=== PATIENT | female | born 1970 | race Caucasian/White ===

== ENCOUNTER 2020-12-29 12:06 | Emergency (ER) | payer SELFPAY ==
[2020-12-29 12:20] VITALS: BP 134/98; PULSE 81; RESP 14; TEMP 36.7; O2SAT 98; BMI 33.0
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
[2020-12-29 12:33] VITALS: BP 134/98; PULSE 81; RESP 16; O2SAT 98
[2020-12-29] MEDS: ketorolac 10 mg Tablet PO (12:37)
--- NOTE | 2020-12-29 12:37 | PC.NURSE ---
Read and agree with assessment
--- NOTE | 2020-12-30 09:42 | DCPLANNER ---
log manager had message to schedule a follow up appointment for patient with ortho. log manager called the ortho clinic, spoke with Miriam, gave clinic patients information. log manager was told that patients information would be printed and reviewed. Clinic will call patient with appointment information.
--- NOTE | 2021-01-01 11:10 | DCPLANNER ---
Patient has a follow up appointment for patient with ortho scheduled for Thursday, January 07, 2021 at 10:[address] Shine. Clinic will call patient with appointment information.
--- NOTE | 2021-01-27 08:04 | DCPLANNER ---
Patient had a follow up appointment scheduled with ortho - patient did attend appointment.
== END 2020-12-29 14:31 | disposition home or self-care (01) ==
PROVIDERS: Emergency Provider Nurse Practitioner Family
DX: M48.02 Spinal stenosis, cervical region (principal)
CPT/HCPCS: 12345; 70450; 72125; 99282; 99283

== ENCOUNTER → 2021-01-09 10:15 | Outpatient (BNVA) | payer SELFPAY | PROVIDERS: PCP Nurse Practitioner Family; Referring Provider Nurse Practitioner Family; Visit Provider Orthopaedic Surgery | DX: M54.2 Cervicalgia (principal); M85.88 Other specified disorders of bone density and structure, other site; M47.892 Other spondylosis, cervical region | CPT/HCPCS: 72050 ==

== ENCOUNTER 2021-01-21 12:17 | Outpatient (CLI) | payer SELFPAY ==
--- NOTE | 2021-01-21 12:30 | MR_ITS ---
WS: [id number] MRI BRAIN WITHOUT CONTRAST HISTORY: M54.2 - Cervicalgia COMPARISON: CT head 12/29/2020 TECHNIQUE: Diffusion imaging, multiplanar T1, T2 and FLAIR imaging obtained. No evidence for acute infarct or hemorrhage. Sigala-white matter differentiation is normal. There are a few tiny very nonspecific subcortical white matter lesions which are not unexpected for t he patient's age. No prior hemorrhage. No significant volume loss or atrophy. Ventricles and extra-axial spaces are normal. No inferior displacement of cerebellar tonsils. The sella turcica and pituitary gland are unremarkabl e. Posterior fossa is also unremarkable. Dural venous sinuses and [place] demonstrate no abnormality on this unenhanced studies. Paranasal sinuses: Clear. Mastoid air cells: Normal. Calvarium and scalp: Intact. MR/MR head wo con* [id number] IMPRESSION: 1. No acute infarcts or hemorrhage. 2. Normal, age-appropriate MRI brain.
== END 2021-01-21 12:18 | disposition home or self-care (01) ==
LOC: RADSHAW 12:19
PROVIDERS: PCP Nurse Practitioner Family; Visit Provider Orthopaedic Surgery
DX: M54.2 Cervicalgia (principal)
CPT/HCPCS: 70551

== ENCOUNTER 2021-01-24 13:03 | Outpatient (CLI) | payer SELFPAY ==
--- NOTE | 2021-01-24 13:07 | MR_ITS ---
WS: [id number] MRI CERVICAL SPINE NONCONTRAST TECHNIQUE: Sagittal T1, T2 and STIR imaging. Axial T2, gradient, and fiesta imaging. CLINICAL INFORMATION: CERVICALGIA COMPARISON: CT cervical December 2020 FINDINGS: Straightening of the normal cervical lordosis. Disc osteophyte complexes worse at C5-C6 and C6-C7. No rmal cord signal. C2-C3: Normal. C3-C4: Normal. C4-C5: Mild osteophytic ridging. Mild left greater than right bony foraminal narrowing. Mild facet ar thropathy. Spinal canal is patent. C5-C6: Disc osteophyte complex eccentric to the left with slight contact of the cervical cord. Mild c entral canal stenosis. Severe left bony foraminal narrowing. Right foramen is patent. Moderate facet arthropathy. C6-C7: Disc osteophyte complex with endplate ridging eccentric to the right. Moderate central canal s tenosis with slight contact and slight flattening of the cervical cord. Moderate to severe bilateral bony foraminal narrowing right greater than left. Mild facet arthropathy. C7-T1: Disc osteophytic ridging. Mild bilateral left greater than right bony foraminal narrowing. Spi nal canal is patent. Visualized brain stem structures: Normal. Prevertebral soft tissues: Normal. MR/MR cervical spin wo con* [id number] IMPRESSION: 1. Straightening of the normal cervical lordosis. Cord signal is normal. 2. Disc osteophyte complexes at C5-C6 and C6-C7 with mild central canal stenos is at C5-C6 and moderate central canal stenosis at C6-7. 3. Severe left C5-6 and moderate to severe bilateral C6-7 bony foraminal narro wing right greater than left. 4. Mild left C7-T1 bony foraminal narrowing.
== END 2021-01-24 13:04 | disposition home or self-care (01) ==
LOC: RADWPI 13:06
PROVIDERS: PCP Nurse Practitioner Family; Visit Provider Orthopaedic Surgery
DX: M25.78 Osteophyte, vertebrae (principal); M48.02 Spinal stenosis, cervical region
CPT/HCPCS: 72141

== ENCOUNTER → 2021-02-25 09:21 | Outpatient (BNVA) | payer BC, SELFPAY | PROVIDERS: PCP Nurse Practitioner Family; Referring Provider Orthopaedic Surgery; Visit Provider Anesthesiology Pain Medicine | DX: M54.12 Radiculopathy, cervical region (principal); M47.812 Spondylosis without myelopathy or radiculopathy, cervical region; M50.90 Cervical disc disorder, unspecified, unspecified cervical region; F17.210 Nicotine dependence, cigarettes, uncomplicated | CPT/HCPCS: 99205 ==

== ENCOUNTER → 2021-03-05 13:33 | Outpatient (BNVA) | payer BC, SELFPAY | PROVIDERS: PCP Nurse Practitioner Family; Visit Provider Anesthesiology Pain Medicine | DX: G89.29 Other chronic pain (principal); M50.90 Cervical disc disorder, unspecified, unspecified cervical region; M54.12 Radiculopathy, cervical region | CPT/HCPCS: 62321 ==

== ENCOUNTER → 2021-03-19 08:37 | Outpatient (BNVA) | payer BC, SELFPAY | PROVIDERS: PCP Nurse Practitioner Family; Visit Provider Anesthesiology Pain Medicine | DX: M54.12 Radiculopathy, cervical region (principal) | CPT/HCPCS: 62321; J1100 ==

== ENCOUNTER → 2021-04-04 10:44 | Outpatient (BNVA) | payer BC, SELFPAY | PROVIDERS: PCP Nurse Practitioner Family; Visit Provider Anesthesiology Pain Medicine | DX: M47.812 Spondylosis without myelopathy or radiculopathy, cervical region (principal); M54.12 Radiculopathy, cervical region; M50.90 Cervical disc disorder, unspecified, unspecified cervical region; R20.2 Paresthesia of skin; F17.210 Nicotine dependence, cigarettes, uncomplicated | CPT/HCPCS: 99214; J1100 ==

== ENCOUNTER → 2021-04-07 13:56 | Outpatient (BNVA) | payer BC, SELFPAY | PROVIDERS: PCP Nurse Practitioner Family; Visit Provider Anesthesiology Pain Medicine | DX: M47.812 Spondylosis without myelopathy or radiculopathy, cervical region (principal); F17.210 Nicotine dependence, cigarettes, uncomplicated | CPT/HCPCS: 64490; 64491; 64492; J3490 ==

== ENCOUNTER → 2021-04-22 09:02 | Outpatient (BNVA) | payer BC, SELFPAY | PROVIDERS: PCP Nurse Practitioner Family; Visit Provider Anesthesiology Pain Medicine | DX: M54.12 Radiculopathy, cervical region (principal); M47.812 Spondylosis without myelopathy or radiculopathy, cervical region; M50.90 Cervical disc disorder, unspecified, unspecified cervical region; F17.210 Nicotine dependence, cigarettes, uncomplicated | CPT/HCPCS: 99214 ==

== ENCOUNTER → 2021-05-05 12:51 | Outpatient (BNVA) | payer BC, SELFPAY | PROVIDERS: PCP Nurse Practitioner Family; Visit Provider Anesthesiology Pain Medicine | DX: M47.812 Spondylosis without myelopathy or radiculopathy, cervical region (principal); F17.210 Nicotine dependence, cigarettes, uncomplicated | CPT/HCPCS: 64633; 64634; J1030 ==

== ENCOUNTER → 2021-05-22 10:37 | Outpatient (BNVA) | payer BC, SELFPAY | PROVIDERS: PCP Nurse Practitioner Family; Visit Provider Anesthesiology Pain Medicine | DX: M54.9 Dorsalgia, unspecified (principal); M54.12 Radiculopathy, cervical region; M47.812 Spondylosis without myelopathy or radiculopathy, cervical region; M50.90 Cervical disc disorder, unspecified, unspecified cervical region; M54.81 Occipital neuralgia; F17.210 Nicotine dependence, cigarettes, uncomplicated | CPT/HCPCS: 99214 ==

== ENCOUNTER → 2021-06-19 10:49 | Outpatient (BNVA) | payer BC, SELFPAY | PROVIDERS: PCP Nurse Practitioner Family; Visit Provider Anesthesiology Pain Medicine | DX: M51.17 Intervertebral disc disorders with radiculopathy, lumbosacral region (principal); M47.812 Spondylosis without myelopathy or radiculopathy, cervical region; M50.90 Cervical disc disorder, unspecified, unspecified cervical region; M54.81 Occipital neuralgia | CPT/HCPCS: 99214 ==

== ENCOUNTER → 2021-08-11 10:44 | Outpatient (BNVA) | payer BC, SELFPAY | PROVIDERS: PCP Nurse Practitioner Family; Visit Provider Anesthesiology Pain Medicine | DX: M47.812 Spondylosis without myelopathy or radiculopathy, cervical region (principal); M50.90 Cervical disc disorder, unspecified, unspecified cervical region; M51.17 Intervertebral disc disorders with radiculopathy, lumbosacral region; M54.81 Occipital neuralgia; F17.210 Nicotine dependence, cigarettes, uncomplicated | CPT/HCPCS: 99214 ==

== ENCOUNTER → 2021-09-15 09:53 | Outpatient (BNVA) | payer BC, SELFPAY | PROVIDERS: PCP Nurse Practitioner Family; Referring Provider Nurse Practitioner Family; Visit Provider Internal Medicine | DX: E21.0 Primary hyperparathyroidism (principal); R63.5 Abnormal weight gain; E78.5 Hyperlipidemia, unspecified; F17.210 Nicotine dependence, cigarettes, uncomplicated; N18.9 Chronic kidney disease, unspecified | CPT/HCPCS: 99204 ==

== ENCOUNTER 2021-09-15 11:25 | Outpatient (CLI) | payer BC, SELFPAY ==
[2021-09-15 12:44] LABS: Calcium 10.6 mg/dL (8.5-10.5)
[2021-09-15 12:49] LABS: Parathyroid Hormone 174.3 pg/mL (15-65)
[2021-09-15 12:54] LABS: Alanine Aminotransferase 14 U/L (0-33); Albumin Level 4.2 g/dL (3.5-5.2); Alkaline Phosphatase 100 IU/L (35-105); Aspartate Amino Transferase 13 U/L (0-32); Blood Urea Nitrogen 9 mg/dL (6-20); Calcium 10.7 mg/dL (8.5-10.5); Carbon Dioxide 22 mmol/L (22-29); Chloride 105 mmol/L (98-107); Chol HDL Ratio 6.29 mg/dL (0.0-4.40); Cholesterol 239 mg/dL (0-200); Free T4 Free Thyroxine 1.23 ng/dL (0.82-1.77); Globulin 2.8 g/dL (1.3-4.6); Glomerular Filtration Rate 87.9 mL/min (90-130); Glucose 91 mg/dL (65-115); HDL Cholesterol 38 mg/dL (60-100); LDL Cholesterol Calculated 151 mg/dL (50-129); LDL HDL Ratio 3.97 RATIO (0.00-3.22); Osmolality Calculated 288 mOsm/kg (285-295); Sodium 140 mmol/L (136-145); Thyroid Stimulating Hormone 1.48 uIU/mL (0.27-4.20); Total Bilirubin 0.3 mg/dL (0.15-1.2); Triglycerides 249 mg/dL (0-150)
== END 2021-09-15 11:26 | disposition home or self-care (01) ==
LOC: LAB 11:29
PROVIDERS: PCP Nurse Practitioner Family; Visit Provider Internal Medicine
DX: E21.3 Hyperparathyroidism, unspecified (principal); E78.5 Hyperlipidemia, unspecified; R63.5 Abnormal weight gain
CPT/HCPCS: 36415; 80053; 80061; 82310; 83970; 84439; 84443

== ENCOUNTER → 2021-10-28 10:30 | Outpatient (BNVA) | payer BC, SELFPAY | PROVIDERS: PCP Nurse Practitioner Family; Visit Provider Anesthesiology Pain Medicine | DX: M51.17 Intervertebral disc disorders with radiculopathy, lumbosacral region (principal); M47.812 Spondylosis without myelopathy or radiculopathy, cervical region; M50.90 Cervical disc disorder, unspecified, unspecified cervical region; M54.81 Occipital neuralgia; R20.2 Paresthesia of skin; F17.200 Nicotine dependence, unspecified, uncomplicated | CPT/HCPCS: 99214 ==

== ENCOUNTER → 2021-11-24 13:33 | Outpatient (BNVA) | payer BC, SELFPAY | PROVIDERS: PCP Nurse Practitioner Family; Visit Provider Surgery | DX: Z20.822 Contact with and (suspected) exposure to COVID-19 (principal) | CPT/HCPCS: 87635 ==

== ENCOUNTER 2021-11-26 08:47 | Day surgery (SDC) | payer BC, SELFPAY ==
--- NOTE | 2021-11-26 09:36 | P.ANESASSM_ITS ---
Pre-Anesthetic Assessment Pre-Anesthetic Assessment: Height/Weight: Height 1.65 m Preop Diagnosis: upper gi symptoms Proposed Procedure: Operation Date: 11/26/21 10:15 Proposed Procedures p EGD 54330/ gerd K21.9/Screening colonoscopy Z12.11(Not Applicable) - Ishmael Menard MD s Colonoscopy(Not Applicable) - Ishmael Menard MD Familial anesthetic complications: None Was Beta All taken within 24 hours: N/A Was Clonidine taken within 24 hours: N/A Last intake: 11/25/21 Social: Social History: Alcohol and Tobacco Packs per day: 12 Exam: Pre-Anes Outpt Exam: alert, oriented x 3, clear to auscultation bilaterally and regular rate & rhythm Airway: Submandibular: WNL and Other Cervical ROM: Other (Severe limiation in all planes states C spine impinges on cord ) MP: 2 Dentition: Full Pulmonary: Pulmonary: Sleep apnea CV/HEM: CV/HEM: None reported Comments: DLD METS = 4 : : None reported Hepatic: Hepatic: None reported GI: GI: GERD (Poorly controlled) Metabolic: Metabolic: None reported Musc/skel: Comments: Paresthesia in b/l UE with neck flexion, rotation, extension MRI 01/24/21 1. Straightening of the normal cervical lordosis. Cord signal is normal. 2. Disc osteophyte complexes at C5-C6 and C6-C7 with mild central canal stenosis at C5-C6 and moderate central canal stenosis at C6-7. 3. Severe left C5-6 and moderate to severe bilateral C6-7 bony foraminal narrowing right greater than left. 4. Mild left C7-T1 bony foraminal narrowing. Neuropsych: Neuropsych: Seizure (Has not had a seizure from epilepsy since she was 10 years old no longer on medication) Anesthetic Plan: ASA status: 3 (51 year old female daily smoker with MARK and severe c-spine foraminal narrowing) Anesthesia: General and MAC Other: We discussed risk and benefits of MAC anesthesia including possible conversion to general as well as spectrum of anesthesia with possible recall of intraoperative events or stimuli including pain/discomfort. Patient agrees to proceed with MAC. Risk of > 500 ml blood loss (7ml/kg in children): No PFSH Anesthesia PFSH: Medical History Breast cancer GERD (gastroesophageal reflux disease) Sleep apnea Surgical History H/O bilateral mastectomy History of partial hysterectomy Family History Father Hypertension Stroke Mother Hypertension COPD (chronic obstructive pulmonary disease) Social History Quit status (tobacco): not considering quitting Second hand smoke exposure: Yes Smoking risk assessment/counseling performed?: Yes Alcohol intake: current Alcohol intake frequency: holidays/special occasions only Desire information about alcohol rehabilitation?: No Counseling given: No Desire information about substance/drug rehabilitation?: No Counseling given: No Adopted: No Caregiver/support person: No Lives independently: Yes Household members: none Housing: House Marital status: / Number of children: 2 Highest education level completed: Associate Degree: Academic Program service: No Current occupational status: employed History of recent travel: No Sexually active: No Current gender identity: Female Cindy/Yazidism: [employer] Special cindy needs: No Agree to transfusion: Yes Data Anesthesia Cardiac Studies: No Data to Display
--- NOTE | 2021-11-26 10:05 | W.PM.OPSUD ---
Surgery/Procedure H&P Update DATE OF PROCEDURE: November 26, 2021 DATE H&P PERFORMED: 11/24/21 H&P UPDATE INFORMATION: I have reviewed H&P completed within last 30 days, I have examined patient prior to procedure and No changes to prior documentation PREOP DIAGNOSIS: upper gi symptoms PLANNED PROCEDURE: Operation Date: 11/26/21 10:15 Proposed Procedures p EGD 02591/ gerd K21.9/Screening colonoscopy Z12.11(Not Applicable) - Ishmael Menard MD s Colonoscopy(Not Applicable) - Ishmael Menard MD
[2021-11-26 10:26] VITALS: BMI 35.7
[2021-11-26 10:33] VITALS: BP 119/84; PULSE 92; RESP 16; TEMP 36.8; O2SAT 99
[2021-11-26] MEDS: sodium chloride 0.9% 1,000 ML 30 ML IV (11:44)
[2021-11-26 12:10] VITALS: BP 105/76; PULSE 91; RESP 16; TEMP 36.1; O2SAT 94
[2021-11-26 12:26] VITALS: BP 116/87; PULSE 79; RESP 16; O2SAT 96
--- NOTE | 2021-11-26 13:29 | PC.NURSE ---
Sent strainer, hat and formalin home with pt for her to retrieve & return ascending colon polyp if possible.
--- NOTE | 2021-11-26 15:30 | ANE.PACU2 ---
Inpatient post-anesthesia follow up: Airway intact: Yes Vital signs: Temperature 97.0 F Pulse Rate 79 Respiratory Rate 16 Blood Pressure 116/87 Pulse Oximetry 96 Oxygen Delivery Me thod Room Air Oxygen Flow Rate Fraction of Inspir ed Oxygen Hydration adequate: Yes Nausea and vomiting: No Pain level: 1 Mental status: Baseline
== END 2021-11-26 13:25 | disposition home or self-care (01) ==
PROVIDERS: PCP Nurse Practitioner Family; Visit Provider Surgery
PROC: 0DJ08ZZ Inspection of Upper Intestinal Tract, Via Natural or Artificial Opening Endoscopic (ICD-10-PCS; CPT 43235; principal; 2021-11-26 10:15)
PROC: 0DJD8ZZ Inspection of Lower Intestinal Tract, Via Natural or Artificial Opening Endoscopic (ICD-10-PCS; CPT 45378; 2021-11-26 10:15)
DX: Z12.11 Encounter for screening for malignant neoplasm of colon (principal); K21.9 Gastro-esophageal reflux disease without esophagitis; K29.70 Gastritis, unspecified, without bleeding; D12.3 Benign neoplasm of transverse colon; D12.8 Benign neoplasm of rectum; K20.90 Esophagitis, unspecified without bleeding; G47.30 Sleep apnea, unspecified; Z85.3 Personal history of malignant neoplasm of breast
CPT/HCPCS: 43239; 45380; 45385; 88305; 96360; J2704; J7030

== ENCOUNTER 2022-09-29 12:32 | Outpatient (CLI) | payer OTHER, SELFPAY ==
--- NOTE | 2022-09-29 13:00 | XR_ITS ---
WS: [id number] SCREENING DEXA SCAN [facility] CLINICAL INFORMATION: osteoporosis COMPARISON: None. FINDINGS: The L1-L4 bone mineral density measures 0.845 g/cm2. This corresponds to a T score score of -2.8 and Z score of -3.1. Left femoral neck bone mineral density measures 0.890 g/cm2. This corresponds to a T score of -0.9 an d Z score of -1.1. Right femoral neck bone mineral density measures 0.815 g/cm2. This corresponds to a T score -1.5of an d Z score of -1.7. Mean femoral neck bone mineral density measures 0.852 g/cm2. This corresponds to a T score of -1.2 an d Z score of -1.4. XR/XR DEXA axial skeleton* [id number] IMPRESSION: Osteoporosis lumbar spine. Osteopenia femoral necks. Patient's FRAX calculated 10 year probability for major osteoporotic fracture i s 6.4 % and osteoporotic hip fracture is 1.1%.
== END 2022-09-29 12:33 | disposition home or self-care (01) ==
LOC: RAD 12:32
PROVIDERS: PCP Nurse Practitioner Family; Visit Provider Internal Medicine
DX: M81.0 Age-related osteoporosis without current pathological fracture (principal); E21.0 Primary hyperparathyroidism; M85.852 Other specified disorders of bone density and structure, left thigh; M85.851 Other specified disorders of bone density and structure, right thigh
CPT/HCPCS: 77080

== ENCOUNTER 2022-10-21 07:51 | Outpatient (CLI) | payer OTHER, SELFPAY ==
--- NOTE | 2022-10-21 08:02 | NM_ITS ---
WS: [id number] NUCLEAR MEDICINE PARATHYROID STUDY. INDICATION: Hypercalcemia. TECHNIQUE: 19.1 mCi technetium 99m sestamibi was administered. Initial and delayed imaging were obtai cuca. Planar anterior and oblique images were obtained with chin and suprasternal notch markers. FINDINGS: Normal homogeneous uptake in the thyroid gland on the initial imaging. Normal salivary glan d activity. No cold defects. No focal areas of suspicious retained activity on the delayed images to indicate parathyroid adenoma. IMPRESSION: No evidence of parathyroid adenoma.
== END 2022-10-21 07:52 | disposition home or self-care (01) ==
PROVIDERS: PCP Nurse Practitioner Family; Visit Provider Internal Medicine
DX: E21.0 Primary hyperparathyroidism (principal); M81.0 Age-related osteoporosis without current pathological fracture
CPT/HCPCS: 78070; A9500

== ENCOUNTER 2023-07-11 18:09 | Emergency (ER) | payer OTHER, MEDICAID, SELFPAY ==
[2023-07-11 18:15] VITALS: BP 143/93; PULSE 103; RESP 17; O2SAT 96
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
--- NOTE | 2023-07-12 08:21 | DCPLANNER ---
Addendum entered by Sheryl Davison 07/23/23 10:50: Patient did attend this appointment with ortho Addendum entered by Sheryl Davison 07/12/23 14:28: Patient has a follow up appointment scheduled for Thursday, July 13, 2023 at 1:00 with Jozef Ford at ortho. Original Note: insurance sales manager had message to schedule a follow up appointment for patient with ortho. insurance sales manager sent patients information to the front office staff at ortho. Patients information will be printed and reviewed. Clinic will call patient with appointment information.
== END 2023-07-11 21:15 | disposition home or self-care (01) ==
PROVIDERS: Emergency Provider Nurse Practitioner; PCP Nurse Practitioner Family
DX: S82.142A Displaced bicondylar fracture of left tibia, initial encounter for closed fracture (principal); M25.462 Effusion, left knee; Z85.3 Personal history of malignant neoplasm of breast; Z77.22 Contact with and (suspected) exposure to environmental tobacco smoke (acute) (chronic); Y04.2XXA Assault by strike against or bumped into by another person, initial encounter
CPT/HCPCS: 29530; 73560; 73700; 99284; E0114

== ENCOUNTER 2023-07-13 14:55 | Outpatient (CLI) | payer OTHER, SELFPAY | END 2023-07-13 14:56 | disposition home or self-care (01) | LOC: SPT 15:45 | PROVIDERS: PCP Nurse Practitioner Family; Visit Provider Physician Assistant | DX: Z46.89 Encounter for fitting and adjustment of other specified devices (principal); S82.143D Displaced bicondylar fracture of unspecified tibia, subsequent encounter for closed fracture with routine healing; X58.XXXD Exposure to other specified factors, subsequent encounter | CPT/HCPCS: 97760; L1812 ==

== ENCOUNTER → 2023-07-27 13:02 | Outpatient (BNVA) | payer OTHER, SELFPAY | PROVIDERS: PCP Nurse Practitioner Family; Visit Provider Physician Assistant | DX: S82.142D Displaced bicondylar fracture of left tibia, subsequent encounter for closed fracture with routine healing (principal); Y04.2XXD Assault by strike against or bumped into by another person, subsequent encounter | CPT/HCPCS: 73560; 73562; 73565 ==

== ENCOUNTER → 2023-08-24 14:53 | Outpatient (BNVA) | payer OTHER, SELFPAY | PROVIDERS: PCP Nurse Practitioner Family; Visit Provider Physician Assistant | DX: S82.142D Displaced bicondylar fracture of left tibia, subsequent encounter for closed fracture with routine healing (principal); W18.39XD Other fall on same level, subsequent encounter | CPT/HCPCS: 73562 ==

== ENCOUNTER → 2023-09-28 13:26 | Outpatient (BNVA) | payer OTHER, SELFPAY | PROVIDERS: PCP Nurse Practitioner Family; Visit Provider Physician Assistant | DX: S82.142D Displaced bicondylar fracture of left tibia, subsequent encounter for closed fracture with routine healing; X58.XXXD Exposure to other specified factors, subsequent encounter; X58.XXXA Exposure to other specified factors, initial encounter | CPT/HCPCS: 73560; 73565 ==

== ENCOUNTER → 2023-11-09 13:37 | Outpatient (BNVA) | payer OTHER, SELFPAY | PROVIDERS: PCP Nurse Practitioner Family; Visit Provider Physician Assistant | DX: S82.142D Displaced bicondylar fracture of left tibia, subsequent encounter for closed fracture with routine healing (principal); X58.XXXD Exposure to other specified factors, subsequent encounter | CPT/HCPCS: 73560; 73565 ==

== ENCOUNTER → 2024-02-01 16:12 | Outpatient (BNVA) | payer OTHER, MEDICAID, SELFPAY | PROVIDERS: PCP Nurse Practitioner Family; Visit Provider Orthopaedic Surgery | DX: M25.562 Pain in left knee; G89.29 Other chronic pain | CPT/HCPCS: 73560; 73565 ==

== ENCOUNTER 2024-03-03 10:09 | Outpatient (CLI) | payer OTHER, MEDICAID, SELFPAY ==
--- NOTE | 2024-03-03 10:15 | MR_ITS ---
WS: [id number] MRI LEFT KNEE NONCONTRAST TECHNIQUE: Axial PD, coronal PD fat sat, coronal PD, sagittal PD, and sagittal PD fat-sat images obta ined. CLINICAL INFORMATION: knee pain COMPARISON: CT 07/11/2023 FINDINGS: Previously described slightly depressed fracture involving the posterolateral tibial plateau was seen on the prior CT. No significant edema in this location today. No evidence of new or recurrent fractu re in this location. This is undergone interval healing with mild residual depression. Distal quadriceps and patella tendons are intact. Normal ACL and PCL. No acute appearing meniscal tea rs. Small amount of chronic intrasubstance signal normality in the posterior horn medial meniscus. Mo derate chondromalacia lateral joint compartment. Grade III chondromalacia advanced for a patient this age. No subchondral edema. Normal medial and lat eral patellar retinaculum. Small suprapatellar effusion. Normal lateral collateral ligament. Small am ount of fluid and edema along the medial collateral ligament compatible with grade 1-2 injury. IMPRESSION: 1. ACL and PCL are intact. 2. Previously described fracture involve the posterior lateral tibial plateau has undergone interval healing with mild residual depression but no underlying signal abnormality. No edema in this locatio n. 3. Moderate chondromalacia lateral joint compartment. 4. Grade III chondromalacia patella. 5. Fluid and edema along the medial collateral ligament compatible with grade 1-2 injury. 6. No other acute findings. Outbridge grading: grade III: partial-thickness cartilage loss with focal ulceration
== END 2024-03-03 10:10 | disposition home or self-care (01) ==
LOC: RAD 10:10
PROVIDERS: PCP Family Medicine; Visit Provider Orthopaedic Surgery
DX: S82.142D Displaced bicondylar fracture of left tibia, subsequent encounter for closed fracture with routine healing (principal); M25.562 Pain in left knee; M22.42 Chondromalacia patellae, left knee; R60.0 Localized edema; X58.XXXD Exposure to other specified factors, subsequent encounter
CPT/HCPCS: 73721

== ENCOUNTER 2024-03-16 16:47 | Outpatient (CLI) | payer OTHER, MEDICAID, SELFPAY | END 2024-03-16 16:48 | disposition home or self-care (01) | LOC: SPT 16:48 | PROVIDERS: PCP Family Medicine; Visit Provider Orthopaedic Surgery | DX: Z46.89 Encounter for fitting and adjustment of other specified devices (principal); S82.142D Displaced bicondylar fracture of left tibia, subsequent encounter for closed fracture with routine healing; X58.XXXD Exposure to other specified factors, subsequent encounter | CPT/HCPCS: 97760; L1812 ==

== ENCOUNTER → 2024-04-27 10:26 | Outpatient (BNVA) | payer OTHER, MEDICAID, SELFPAY | PROVIDERS: PCP Family Medicine; Visit Provider Orthopaedic Surgery | DX: Z01.812 Encounter for preprocedural laboratory examination (principal); M50.90 Cervical disc disorder, unspecified, unspecified cervical region; M47.22 Other spondylosis with radiculopathy, cervical region | CPT/HCPCS: 36415; 72050; 80053; 81003; 85025 ==

== ENCOUNTER → 2024-05-22 11:41 | Outpatient (BNVA) | payer OTHER, MEDICAID, SELFPAY | PROVIDERS: PCP Family Medicine; Visit Provider Family Medicine | DX: Z01.818 Encounter for other preprocedural examination (principal) | CPT/HCPCS: 80048; 81003; 85025; 93005 ==

== ENCOUNTER → 2024-05-23 | Outpatient (BNVA) | payer OTHER, MEDICAID, SELFPAY | PROVIDERS: PCP Family Medicine; Visit Provider Family Medicine | DX: Z01.818 Encounter for other preprocedural examination (principal) | CPT/HCPCS: 87086 ==

== ENCOUNTER 2024-06-07 09:35 | Observation (INO) | payer OTHER, SELFPAY ==
[2024-06-07] VITALS (14 sets, daily range): BP systolic 133–172; BP diastolic 82–97; PULSE 66–89; RESP 17–18; TEMP 36.2–36.8; O2SAT 84–100; BMI 33.7
--- NOTE | 2024-06-07 | XR_ITS ---
WS: [id number] Cervical spine, C-arm fluoroscopy views, 06/07/2024 Clinical Data: DAGMAR PICS Comparison: Cervical spine, 04/27/2024 Findings: Dr. Shine performed an anterior cervical disc fusion. XR/XR cervical spine 3V* [id number] Impression: Anterior cervical disc fusion.
--- NOTE | 2024-06-07 06:34 | W.PM.OPSUD ---
Surgery/Procedure H&P Update DATE OF PROCEDURE: June 07, 2024 DATE H&P PERFORMED: 05/22/24 H&P UPDATE INFORMATION: I have reviewed H&P completed within last 30 days, I have examined patient prior to procedure and No changes to prior documentation PREOP DIAGNOSIS: Cervical spondylosis with radiculopathy PLANNED PROCEDURE: Operation Date: 06/07/24 07:00 Proposed Procedures p Anterior Cervical Discectomy & Fusion ACDF w/ Anterior Interbody Fusion w/ Cage w/ Instrumentation w/ Allograft w/ Navigation(Not Applicable) - Jarvis Shine DO
[2024-06-07] MEDS: sodium chloride 0.9% 1,000 ML 30 ML IV (06:43)
[2024-06-07] MEDS: scopolamine 1.5 Patch 1 PATCH TRANSDERMA (06:43)
--- NOTE | 2024-06-07 07:03 | ANES.PREANE2 ---
Pre-Anesthetic Assessment Height/Weight: Height 1.65 m Weight 92.079 kg Temp Pulse Resp BP Pulse Ox O2 Del Method 97.9 F 72 18 149/89 98 Room Air 06/07/24 06:11 06/07/24 06:11 06/07/24 06:11 06/07/24 06:11 06/07/24 06:11 06/07/24 06:16 Preop Diagnosis: Cervical spondylosis with radiculopathy Operation Date: 06/07/24 07:00 Proposed Procedures p Anterior Cervical Discectomy & Fusion ACDF w/ Anterior Interbody Fusion w/ Cage w/ Instrumentation w/ Allograft w/ Navigation(Not Applicable) - Jarvis Shine, DO Familial anesthetic complications: PONV Was Beta All taken within 24 hours: N/A Was Clonidine taken within 24 hours: N/A Last intake: Intake Last Liquid Date 06/06/24 Last Liquid Time 22:30 Last Solid Date 06/06/24 Last Solid Time 19:00 Social No alcohol and No tobacco Exam alert, oriented x 3, clear to auscultation bilaterally and regular rate & rhythm Airway Mallampati: Class II Dentition: false Pulmonary Sleep Apnea CV/HEM Hypertension GI Gastroesophageal Reflux Disease Metabolic Diabetes Mellitus hyperPTH Anesthetic Plan ASA status: 3 Anesthesia: General Risk of > 500 ml blood loss (7ml/kg in children): No Medications/Allergies Home Medications Medication Instructions Recorded Confirmed Last Taken Type losartan 50 mg tablet 50 mg PO DAILY 01/09/21 06/06/24 06/06/24 History acetaminophen 500 mg tablet 1,000 mg PO TID PRN Pain 09/15/21 06/06/24 06/06/24 History (Tylenol Extra Strength) cholecalciferol (vitamin D3) 125 125 mcg PO DAILY 09/15/21 06/06/24 11/26/21 History mcg (5,000 unit) capsule pantoprazole 40 mg tablet,delayed 40 mg PO DAILY #30 tabs 12/12/21 06/06/24 06/06/24 Rx release rosuvastatin 20 mg tablet (Crestor) 20 mg PO DAILY #90 tabs 01/05/23 06/06/24 06/06/24 Rx Hinge Knee Brace #1 ea 07/13/23 04/27/24 Unknown Rx cyanocobalamin (vitamin B-12) 1,000 mcg IM DIRECTED 07/27/23 06/06/24 Unknown History 1,000 mcg/mL injection kit ibuprofen 800 mg tablet (IBU) 800 mg PO TID Neck pain and 07/27/23 06/06/24 Unknown History headaches metformin 500 mg tablet 500 mg PO BID High a1c 07/27/23 06/06/24 06/04/24 History potassium chloride 8 mEq 8 meq PO DAILY With lasix 07/27/23 06/06/24 06/06/24 History capsule,extended release tramadol 50 mg tablet 50 mg PO .q4-6hrs PRN pain #40 tabs 07/28/23 06/06/24 06/06/24 Rx wheelchair #1 ea 08/24/23 04/27/24 Unknown Rx Hinge knee brace #1 ea 03/16/24 04/27/24 Unknown Rx amlodipine 5 mg tablet 5 mg PO DAILY 05/22/24 06/06/24 06/06/24 History duloxetine 30 mg capsule,delayed 90 mg PO DAILY 05/22/24 06/06/24 06/06/24 History release (Cymbalta) furosemide 20 mg tablet 20 mg PO QAM 05/22/24 06/06/24 Unknown History gabapentin 600 mg tablet 600 mg PO BID 05/22/24 06/06/24 06/06/24 History tizanidine 4 mg tablet 4 mg PO .qhs 05/22/24 06/06/24 06/06/24 History Allergies Allergy/AdvReac Type Severity Reaction Status Date / Time oxycodone [From Percocet] Allergy ALGY-Hives Verified 05/22/24 11:53 Current Medications Generic Name Dose Route Start Last Admin Trade Name Freq PRN Reason Stop Dose Admin Sodium Chloride 1,000 mls @ 30 mls/hr 06/07/24 06:00 06/07/24 06:43 Sodium Chloride 0.9% IV 06/08/24 05:59 30 mls/hr .Q24H ANGEL Administration PFSH Anesthesia Medical History Colon polyps GERD (gastroesophageal reflux disease) Breast cancer Sleep apnea Surgical History Status post colonoscopy (11/26/21) H/O esophagogastroduodenoscopy (11/26/21) H/O bilateral mastectomy History of partial hysterectomy Family History Father Hypertension Stroke Mother Hypertension COPD (chronic obstructive pulmonary disease) Social History Smoking and tobacco/nicotine status: current every day tobacco/nicotine user (1/2 pack a day) cigarettes Packs smoked per day: 1 Quit status (tobacco/nicotine): not considering quitting Second hand smoke exposure: Yes Alcohol intake: current Alcohol intake frequency: holidays/special occasions only Substance/Drug Use: never Adopted: No Caregiver/support person: No Lives independently: Yes Household members: none Housing: House Marital status: / Number of children: 2 Highest education level completed: Associate Degree: Academic Program service: No Current occupational status: employed Sexually active: No Do you think of yourself as: Straight/Heterosexual Current gender identity: Female Cindy/Scientology: Pentecostalism Special cindy needs: No Agree to transfusion: Yes Data Anesthesia Cardiac Studies: No Data to Display
[2024-06-07] MEDS: ceFAZolin 2,000 MG in sodium chloride 0.9% (plus) 50 ML 100 MG IV (07:05)
--- NOTE | 2024-06-07 09:15 | PM.OP ---
Operative Report Date of procedure: June 07, 2024 Pre-op diagnosis: Cervical spondylosis with radiculopathy Post-op diagnosis: same Procedure done: 1. Anterior diskectomy C5/6 2. Anterior discectomy C6/7 3. Insertion of cage C5/6 4. Insertion of Cage C6/7 5. Instrumentation with anterior plate from C5-C7 6. Use of allograft Surgeon: Jarvis Shine DO Estimated blood loss (mL): 25 Procedure: 1. Anterior diskectomy C5/6 2. Anterior discectomy C6/7 3. Insertion of cage C5/6 4. Insertion of Cage C6/7 5. Instrumentation with anterior plate from C5-C7 6. Use of allograft The patient was taken to the operating room, where he underwent general endotracheal anesthesia without complications. He was then positioned supine on the operating table, and all areas of impingement were well padded. The arms were carefully padded and tucked at his sides. A roll was placed between the shoulder blades.. An x-ray was done to determine the appropriate level for the skin incision. The entire neck was then sterilely prepped and draped in the usual fashion. Neuromonitoring was attached prior to prepping. A transverse skin incision was made and carried down to the platysma muscle. This was then split in line with its fibers. Blunt dissection was carried down medial to the carotid sheath and lateral to the trachea and esophagus until the anterior cervical spine was visualized. A needle was placed into a disc and an x-ray was done to determine its location. The longus colli muscles were then elevated bilaterally with the electrocautery unit. Self-retaining retractors were placed deep to the longus colli muscle. Attention was brought to the C5-6 level that was confirmed on x-ray. A caspar pin was placed into the C5 vertebrae and the C6 vertebrae. The disk space was then distracted. The microscope was then brought in. A radical anterior discectomies were performed at C 5/6. This included complete removal of the anterior annulus, nucleus, and posterior annulus. The posterior longitudinal ligament was removed as were the posterior osteophytes. Foraminotomies were then accomplished bilaterally. This was done using a high speed dameon, kerrison rongeurs and curretes Once all of this was accomplished, the curved currette was used to check for any residual compression. The central canal was wide open as were the foramen. A high-speed bur was used to remove the cartilaginous endplates above and below the interspace. Bleeding cancellous bone was exposed. The disc space were measured and appropriate size cage were placed sterilely onto the field. Allograft graft was packed into the cages. The cage was then placed and there was good juxtaposition against the bleeding decorticated surfaces and good distraction of each interspace. Attention was brought to the next interspace. Attention was brought to the C6/7 level that was confirmed on x-ray. A caspar pin was placed into the C6 vertebrae and the C7 vertebrae. The disk space was then distracted. The microscope was then brought in. A radical anterior discectomies were performed at C6/7. This included complete removal of the anterior annulus, nucleus, and posterior annulus. The posterior longitudinal ligament was removed as were the posterior osteophytes. Foraminotomies were then accomplished bilaterally. This was done using a high speed dameon, kerrison rongeurs and curretes Once all of this was accomplished, the curved currette was used to check for any residual compression. The central canal was wide open as were the foramen. A high-speed bur was used to remove the cartilaginous endplates above and below the interspace. Bleeding cancellous bone was exposed. The disc space were measured and appropriate size cage were placed sterilely onto the field. Allograft graft was packed into the cages. The cage was then placed and there was good juxtaposition against the bleeding decorticated surfaces and good distraction of each interspace. The [place] pins were removed. Bone wax was used to prevent any bleeding from occurring at the pin sites. The appropriate size anterior cervical locking plate was chosen and bent into gentle lordosis. Two screws were then placed into each of the vertebral bodies at C5, C6 and C7. There was excellent purchase. A final x-ray was done confirming good position of the hardware and Cages. The locking screws were then applied, also with excellent purchase. Following a final copious irrigation, there was good hemostasis and no dural leaks. The carotid pulse was strong. The wounds were then closed in layers using 2-0 Vicryl suture for the platysma muscle, 2-0 Vicryl suture for the subcutaneous tissue, and 4-0 monocryl suture in a subcuticular skin closure. Glue was placed followed by application of a sterile dressing. The drain was hooked to bulb suction. A soft collar was applied. The patient was then carefully returned to the supine position on his hospital bed where he was reversed and extubated and taken to the recovery room having tolerated the procedure well.
[2024-06-07] MEDS: fentaNYL 50 mcg/mL INJ 2mL IVP (09:40)
--- NOTE | 2024-06-07 09:50 | ANE.PACU2 ---
Inpatient post-anesthesia follow up: Airway intact: Yes Vital signs: Temperature 98.1 F Pulse Rate 83 Respiratory Rate 18 Blood Pressure 135/85 Pulse Oximetry 93 Oxygen Delivery Me thod Room Air Oxygen Flow Rate 10 Fraction of Inspir ed Oxygen Hydration adequate: Yes Nausea and vomiting: No Pain level: 1 Mental status: Baseline
[2024-06-07] MEDS: ketorolac 30 mg/mL INJ IVP ×3 (10:47→23:27)
[2024-06-07] MEDS: HYDROcodone-acetaminophen 5-325 mg Tablet PO (10:47)
[2024-06-07] MEDS: lactated ringers 1,000 ML 90 ML IV ×2 (10:57→23:16)
[2024-06-07] MEDS: TRAMadol 50 mg Tablet PO ×3 (14:05→23:16)
[2024-06-07] MEDS: ceFAZolin 2,000 mg SDV 2000 MG IVP ×2 (14:43→23:16)
[2024-06-07] MEDS: gabapentin 300 mg Capsule 600 MG PO (17:15)
[2024-06-07] MEDS: docusate sodium 100 mg Capsule PO (17:16)
[2024-06-08 00:34] VITALS: BP 168/90; PULSE 66; RESP 17; TEMP 36.4; O2SAT 91
[2024-06-08 04:00] VITALS: BP 143/91; PULSE 73; RESP 16; TEMP 36.4; O2SAT 95
[2024-06-08] MEDS: ceFAZolin 2,000 mg SDV 2000 MG IVP (05:24)
[2024-06-08] MEDS: TRAMadol 50 mg Tablet PO (05:33)
[2024-06-08 07:41] VITALS: BP 144/85; PULSE 61; RESP 16; TEMP 37.4; O2SAT 98
--- NOTE | 2024-06-08 07:53 | PM.DCS ---
Discharge Providers Date of Admission: 06/07/24 09:35 Date of Discharge: June 08, 2024 Attending Provider at Admission: Jarvis Shine DO Attending Provider at Discharge: Jarvis Shine DO Primary Care Provider: Wing Fowler MD Reason for Visit Reason for Visit: M47.22 Physical Exam Narrative: Patient did well had 40 cc out of her drain overnight. Discharge Data Studies Completed and Pending Pending at discharge Category Date Time Status C-arm Fluoroscopy 29416 Routine Exams 06/07/24 05:52 Taken Vitals Last Vital Signs Temp 97.6 F 06/08/24 04:00 Pulse 73 06/08/24 04:00 Resp 16 06/08/24 04:00 BP 143/91 06/08/24 04:00 Pulse Ox 95 06/08/24 04:00 O2 Del Method Nasal Cannula 06/08/24 04:00 O2 Flow Rate 10 06/07/24 09:30 Discharge Plan Discharge Patient Disposition: Home Condition: Stable Prescriptions: New hydrocodone-acetaminophen 5-325 mg tablet 1 - 2 tab PO .Q4-6H Qty: 40 0RF Continued cholecalciferol (vitamin D3) 125 mcg (5,000 unit) capsule 125 mcg PO DAILY acetaminophen [Tylenol Extra Strength] 500 mg tablet 1,000 mg PO TID PRN (Reason: Pain) duloxetine [Cymbalta] 30 mg capsule,delayed release(DR/EC) 90 mg PO DAILY furosemide 20 mg tablet 20 mg PO QAM losartan 50 mg tablet 50 mg PO DAILY pantoprazole 40 mg tablet,delayed release (DR/EC) 40 mg PO DAILY Qty: 30 2RF Hold Instructions: Resume on 12/10/21. ([facility] [place]) wheelchair See Rx Instructions .Route .MEDSUPPLY Qty: 1 0RF Rx Instructions: As directed (DME) Hinge knee brace See Rx Instructions .Route .MEDSUPPLY Qty: 1 0RF Rx Instructions: As directed rosuvastatin [Crestor] 20 mg tablet 20 mg PO DAILY Qty: 90 2RF (DME) Hinge Knee Brace See Rx Instructions .Route .MEDSUPPLY Qty: 1 0RF Rx Instructions: As directed potassium chloride 8 mEq capsule, extended release 8 meq PO DAILY metformin 500 mg tablet 500 mg PO BID cyanocobalamin (vitamin B-12) 1,000 mcg/mL kit 1,000 mcg IM DIRECTED gabapentin 600 mg tablet 600 mg PO BID tizanidine 4 mg tablet 4 mg PO .qhs amlodipine 5 mg tablet 5 mg PO DAILY tramadol 50 mg tablet 50 mg PO .q4-6hrs PRN (Reason: pain) Qty: 40 0RF Held ibuprofen [IBU] 800 mg tablet 800 mg PO TID Hold Instructions: Resume on 06/10/24. Discharge Orders: Discharge Order (Routine); Ordered 06/08/24 Ordered By: Jarvis Shine Discharge Diet: Advance as tolerated Discharge Activity: Limit activity as instructed Patient Instructions: Acute Wound Care (DC), Opioid Safety, Post Anesthesia Care Activity Restrictions/Additional Instructions: Thank you for choosing [facility] for your care! The following is a list of instructions, from your provider, to follow upon your discharge to ensure you have the optimal recovery from your recent injury or surgery. Anterior Cervical Discectomy and Fusion: What to Expect at Home Your Recovery Follow-up care is a best part of your treatment and safety. Be sure to make and go to all appointments, and call your doctor if you are having problems. If you do not already have a follow-up appointment made, call office in the next 1-3 days to make follow up appointment for 2 weeks at [phone]. It is also a good idea to know your test results and keep a list of the medicines you take. You can expect your neck to feel stiff or sore after surgery. This should improve in the weeks after surgery. But it may take 4 to 6 months for you to get better completely. You may have trouble sitting or standing in one position for very long and may need pain medicine in the weeks after your surgery. It may take 4 to 6 weeks to get back to your usual activities, but it may depend on what kind of surgery you had. Your throat will feel sore and it may be difficult to swallow for the first 3 days after your surgery. As long as you can get liquids down without difficulty, this should slowly improve, otherwise call our office or seek medical attention if it becomes increasingly difficult to get anything down including liquids. Avoid hot liquids for first 3-5 days. Soothing foods/liquids such as jello, pudding, and luke warm soups are recommended until swallowing improves. Staying elevated will also help, it's advised you keep propped up at while sleeping to help reduce the swelling. You may use an ice pack directly on your incision or around it on the front of your neck, using a cloth to protect your skin; and a heating pad to the back of your neck as needed. Do not use over the counter anti-inflammatory medications (Ibuprofen, Motrin, Aleve, Advil, etc) Taking these meds after having a fusion can delay fusion rates, we recommend you avoid them for the first 3 months after your surgery[address] Dr. Shine may advise you to work with a physical therapist to strengthen the muscles around your neck and back - this will be discussed at your follow - up appointments. The pain or numbness you were having in your arms before surgery should get better or go away completely. This care sheet gives you a general idea about how long it will take for you to recover. But each person recovers at a different pace. Follow the steps below to get better as quickly as possible. How can you care for yourself at home? Activity ? Rest when you feel tired. Getting enough sleep will help you recover. ? Try to walk each day. Start by walking a little more than you did the day before. Bit by bit, increase the amount you walk. Walking boosts blood flow and helps prevent pneumonia and constipation. Walking may also decrease your muscle soreness after surgery. ? No lifting anything that is more that 5 pounds. This may include heavy grocery bags and milk containers, a heavy briefcase or backpack, cat litter or dog food bags, a child, or a vacuum chrome cleaner. ? Avoid strenuous activities, such as bicycle riding, jogging, weightlifting, or aerobic exercise, until your doctor says it is okay. ? Do not drive until your follow-up visit after your surgery, or until your doctor says it isokay. ? Avoid taking long car trips for 2 to 4 weeks after surgery. Your neck may become tired and painful from sitting too long in one position. ? You will probably need to take 4 to 6 weeks off from work. It depends on the type of work you do and how you feel. ? You may have sex as soon as you feel able, but avoid positions that put stress on your neck or cause pain. Diet ? You can eat your normal diet. If your stomach is upset, try bland, low-fat foods like plain rice, broiled chicken, toast, and yogurt ? Drink plenty of fluids. If you have kidney, heart, or liver disease and have to limit fluids, talk with your doctor before you increase the amount of fluids you drink. ? You may notice that your bowel movements are not regular right after your surgery. This is common. Try to avoid constipation and straining with bowel movements. You may want to take a fiber supplement every day. If you have not had a bowel movement after a couple of days, ask your doctor about taking a mild laxative. Medicines ? Take pain medicines exactly as directed. 1. If Dr. Shine gave you a prescription medicine for pain, take lt as prescribed. 2. Do not take two or more pain medicines at the same time unless the doctor told you to. Many pain medicines have acetaminophen, which is Tylenol. Too much acetaminophen {Tylenol) can be harmful. 3. If you think your pain pill is making you sick to your stomach: 4. Take your pills after meals (unless your doctor has told you not to). 5. Ask your Dr. for a different pain pill. Incisioncare ? Remove your dressing 48hours after your surgery. Ok to shower and get the incision wet. Do not overtly wash your incision. When done, pad dry, leave open to air thereafter. Avoid creams and ointments directly on your incision. ? Your sutures in the incision will dissolve and fall out on their own. ? Keep the area clean and dry. You may cover it with a gauze bandage if it weeps or rubs against clothing; if you choose to do this, change the dressing everyday. Other instructions ? Use a heating pad, hot water bottle, or gentle massage on your back to reduce stiffness. Avoid putting heat on your incision When should you call for help? ? Call 911 anytime you think you may need emergency care. For example, call if: ? You pass out (lose consciousness). ? You have sudden chest pain and shortness of breath, or you cough upblood. ? You cannot swallow. ? You have severe pain in your neck or back. ? Call your DrDariela or seek immediate medical care if: ? You have pain that does not get better after you take pain pills. ? You have loose stitches, or your incision comes open. ? You have blood or fluid draining from the incision. ? You have signs of infection, such as: 1. Increased pain, swelling, warmth, or redness. 2. Red streaks leading from the site. 3. Pus draining from the site. 4. Swollen lymph nodes in your neck or armpits. 5. A fever. ? You have severe pain in your arms. ? You have new or increased weakness or numbness in your arms. ? Watch closely for any changes in your health, and be sure to contact your doctor if: ? You do not have a bowel movement after taking a laxative. Discharge Attestations Time Spent in Discharge Care*: less than 30 min Quality Metrics Clinical Quality Measures [ No reported AMI, CVA or VTE this stay] Coding Level of Care Code Acute Code for Chg Se[place]d
[2024-06-08] MEDS: pantoprazole DR 40 mg Tablet PO (08:42)
[2024-06-08] MEDS: amlodipine 5 mg Tablet PO (08:42)
[2024-06-08] MEDS: docusate sodium 100 mg Capsule PO (08:44)
[2024-06-08] MEDS: gabapentin 300 mg Capsule 600 MG PO (08:44)
[2024-06-08] MEDS: duloxetine 30 mg Capsule 90 MG PO (08:44)
[2024-06-08 08:46] VITALS: BP 144/85
[2024-06-08] MEDS: losartan 50 mg Tablet PO (08:46)
[2024-06-08 12:42] VITALS: BP 144/85
== END 2024-06-08 10:00 | disposition home or self-care (01) ==
LOC: MEDSURG 09:36
PROVIDERS: Admitting Provider Orthopaedic Surgery; PCP Family Medicine; Visit Provider Orthopaedic Surgery
PROC: 0RB30ZZ Excision of Cervical Vertebral Disc, Open Approach (ICD-10-PCS; CPT 22551; principal; 2024-06-07 07:00)
DX: M47.22 Other spondylosis with radiculopathy, cervical region (principal); G47.30 Sleep apnea, unspecified; I10 Essential (primary) hypertension; K21.9 Gastro-esophageal reflux disease without esophagitis; E11.9 Type 2 diabetes mellitus without complications; Z85.3 Personal history of malignant neoplasm of breast; F17.210 Nicotine dependence, cigarettes, uncomplicated
CPT/HCPCS: 20930; 22551; 22552; 22845; 22853 ×2; 72040; 76000; 97161; C1713; C1763; C9359; G0378; J0131; J0330; J0690; J1100; J1885; J2250; J2371; J2405; J2704; J2710; J3010; J3490; J7030; J7120

== ENCOUNTER → 2024-07-18 14:49 | Outpatient (BNVA) | payer OTHER, MEDICAID, SELFPAY | PROVIDERS: PCP Family Medicine; Visit Provider Orthopaedic Surgery | DX: Z98.1 Arthrodesis status (principal) | CPT/HCPCS: 72040 ==

== ENCOUNTER → 2024-08-29 10:23 | Outpatient (BNVA) | payer OTHER, SELFPAY | PROVIDERS: PCP Family Medicine; Visit Provider Orthopaedic Surgery | DX: Z98.1 Arthrodesis status (principal) | CPT/HCPCS: 72040 ==